=== PATIENT | male | born 1955 | race Hispanic/Latino ===

== ENCOUNTER 2020-02-20 20:34 | Emergency (ER) | payer MEDICARE, OTHER ==
[~2020-02-20] VITALS: Ht 175.3 cm; Wt 99.8 kg
[2020-02-20] MEDS ORDERED: LEVOTHYROXINE50 MCG PO (20:58)
[2020-02-20] MEDS ORDERED: PRAVACHOL20 MG PO (20:59)
[2020-02-20] MEDS ORDERED: GLUCOPHAGE1000 MG PO (20:59)
[2020-02-20] MEDS ORDERED: LISINOPRIL5 MG PO (20:59)
[2020-02-20] MEDS ORDERED: JANUVIA100 MG PO (21:00)
== END 2020-02-21 05:38 | disposition home or self-care (01) ==
LOC: ED 20:34
DX: D64.9 Anemia, unspecified (principal); E11.9 Type 2 diabetes mellitus without complications; I10 Essential (primary) hypertension; E78.5 Hyperlipidemia, unspecified; E03.9 Hypothyroidism, unspecified; Z87.891 Personal history of nicotine dependence; Z79.899 Other long term (current) drug therapy; Z79.84 Long term (current) use of oral hypoglycemic drugs
CPT/HCPCS: 36430; 80053; 83540; 84466; 85025; 85610; 85730; 86850; 86900; 86901; 86920; 99284-25

== ENCOUNTER 2020-10-16 10:22 | Observation (INO) | payer MEDICARE, MEDICAID ==
[~2020-10-16] VITALS: Ht 175.3 cm; Wt 114.3 kg
[~2020-10-16 10:22] MED LIST: GLUCOPHAGE1000 MG PO; JANUVIA100 MG PO; LEVOTHYROXINE50 MCG PO; LISINOPRIL5 MG PO; PRAVASTATIN SOD40 MG PO
[2020-10-16] MEDS ORDERED: PANTOPRAZOLE SO40 MG PO (10:35)
[2020-10-16] MEDS ORDERED: PROPRANOLOL HCL10 MG PO (13:39)
[2020-10-16] MEDS ORDERED: LISINOPRIL10 MG PO (13:40)
[2020-10-16] MEDS ORDERED: PRAVASTATIN SOD20 MG PO (14:27)
--- NOTE | 2020-10-16 16:00 | NUR ---
PT ARRIVED AT 1515. CONSENT SIGNED FOR BLOOD TRANSFUSION, PT HAS +1 PITTING EDEMA IN BILATERAL LOWER LEGS. ASSESSMENT OTHERWISE WAS WLD OVERALL.
--- NOTE | 2020-10-16 17:25 | NUR ---
BLOOD TRANSFUSION IS RUNNING BAG 1 OF 2. V/S WDL. PT HAS NO NEEDS OR COMPLAINTS AT THIS TIME.
--- NOTE | 2020-10-16 19:19 | NUR ---
IN ROOM FOR REPORT, PT IS AWAKE IN BED. PROVIDED ANOTHER BLANKET AND HE DENIES FURTHER NEEDS AT THIS TIME. CALL LIGHT IS CLOSE.
--- NOTE | 2020-10-16 21:32 | NUR ---
IN ROOM TO CHECK ON PT. HE DENIES ANY SYMPTOMS WITH BLOOD INFUSING. PT DENIES FURTHER NEEDS. CALL LIGHT IS CLOSE.
--- NOTE | 2020-10-16 22:14 | NUR ---
CALLED PT SON, ALFRED, HE WILL START IN FROM [place]. DR CHOUDHURY NOTIFIED THAT THE BLOOD INFUSION WAS COMPLETE, AND SHE WILL PLAN TO COME SEE HIM. INFORMED PT OF THIS.
--- NOTE | 2020-10-16 22:25 | NUR ---
2015-STARTED BLOOD TRANSFUSION @ 75MLS/HR. PT TOLERATED IT WELL AND HAD NO REACTIONS. 2029 INCREASED RATED TO 150MLS AND PT TOLERATED IT WELL WITHOUT REACTIONS. 2039 INCREASED RATE TO 200MLS/HR AND PT TOLERATED IT WELL WITHOUT ANY REACTION. BLOOD COMPLETE AT 2225, PT DENIES ANY SYMPTOMS OF REACTION. ALL VS WNL.
--- NOTE | 2020-10-16 23:45 | NUR ---
PT DENIES NEED FOR EVENING MEDICATIONS. PT STATES HE DOES NOT TAKE INSULIN AT HOME. PT WILL DC SOON AND DC ORDERS ARE IN.
--- NOTE | 2020-10-16 23:50 | NUR ---
pt DRESSED AT SIDE OF BED. IV D/C'D WNL. ICT BUSINESS ANALYST SHERIE IN ROOM TO COMPLETE VS, ESCORT PATIENT OUT OF HOSPITAL WITH WHEELCHAIR.
--- NOTE | 2020-10-17 00:06 | NUR ---
CYRUS REHMAN TOOK PT OUT TO SON CAR VIA WHEELCHAIR.
== END 2020-10-17 00:06 | disposition home or self-care (01) ==
LOC: ED 10:22 → MS 10:23
PROVIDERS: ADMIT Internal Medicine; ATTEND Internal Medicine
DX: D50.0 Iron deficiency anemia secondary to blood loss (chronic) (principal); K74.60 Unspecified cirrhosis of liver; D69.6 Thrombocytopenia, unspecified; I10 Essential (primary) hypertension; E78.5 Hyperlipidemia, unspecified; E03.9 Hypothyroidism, unspecified; E11.9 Type 2 diabetes mellitus without complications; Z20.822 Contact with and (suspected) exposure to COVID-19; Z87.891 Personal history of nicotine dependence; Z79.84 Long term (current) use of oral hypoglycemic drugs
CPT/HCPCS: 36415; 36430; 83540; 83615; 84466; 85025; 85045; 85610; 85730; 86850; 86900; 86901; 86920; 99284; C9803; G0378; J7030; P9016; U0003

== ENCOUNTER 2023-09-02 03:14 | Observation (INO) | payer MEDICARE ==
[~2023-09-02] VITALS: Ht 175.3 cm; Wt 97.8 kg
[2023-09-02] VITALS (14 sets, daily range): BP systolic 91–135; BP diastolic 47–93
[~2023-09-02 03:14] MED LIST changes: +LISINOPRIL10 MG PO; +PANTOPRAZOLE SO40 MG PO; +PRAVASTATIN SOD20 MG PO; +PROPRANOLOL HCL10 MG PO
[2023-09-02] MEDS ORDERED: PANTOPRAZOLE SODIUM 40 MG/10 ML VIAL IV ONE (03:30)
[2023-09-02 03:49] LABS: BASOPHILS 0.9 % (0-2); EOSINOPHILS 0.3 % (0-6); HEMOGLOBIN 10.3 g/dL (12.0-18.0); LYMPHOCYTES 9.6 % (24-44); MCH 29.2 (27-36); MCHC 32.4 g/dl (30-36); MCV 90.2 fl (81-99); MONOCYTES 3.7 % (0-12); NEUTROPHILS 85.5 % (39-80); PLATELET COUNT 104 K/uL (140-440); RBC 3.54 M/ul (4.3-5.7); RDW 18.1 (10.5-15.0)
[2023-09-02 03:58] LABS: INR 1.16 (0.80-1.30); PROTIME 14.4 Sec (11.2-14.2)
[2023-09-02 04:03] LABS: ALBUMIN 2.7 g/dL (3.4-5.0); ALBUMIN/GLOBULIN RATIO 0.61 (1.1-2.4); ANION GAP 19.1 (7-21); BILIRUBIN, TOTAL 1.7 ng/dL (0.2-1.0); CALCIUM 9.2 mg/dL (8.5-10.1); CREATININE, SERUM 1.15 mg/dL (0.70-1.30); POTASSIUM 4.1 mmol/L (3.5-5.1); PROTEIN, TOTAL 7.1 g/dL (6.4-8.2)
[2023-09-02 04:24] LABS: ABO A; ANTIBODY SCREEN NEGATIVE; RH POSITIVE
[2023-09-02 04:37] LABS: BASOPHILS 0.2 % (0-2); EOSINOPHILS 0.2 % (0-6); HEMATOCRIT 29.1 % (35.0-50.0); HEMOGLOBIN 9.4 g/dL (12.0-18.0); LYMPHOCYTES 10.9 % (24-44); MCH 29.1 (27-36); MCHC 32.2 g/dl (30-36); MCV 90.4 fl (81-99); MONOCYTES 4.3 % (0-12); NEUTROPHILS 84.4 % (39-80); PLATELET COUNT 86 K/uL (140-440); RBC 3.23 M/ul (4.3-5.7); RDW 18.1 (10.5-15.0)
[2023-09-02] MEDS ORDERED: TRANEXAMIC ACID IN NACL,ISO-OS 1,000 MG/100 ML PIGGYBACK IV ONE (04:45)
[2023-09-02] MEDS ORDERED: ondansetron HCL 4 MG/2 ML VIAL IV ONE (05:15)
[2023-09-02 05:48] LABS: BASOPHILS 0.5 % (0-2); EOSINOPHILS 0.1 % (0-6); HEMATOCRIT 28.3 % (35.0-50.0); HEMOGLOBIN 9.4 g/dL (12.0-18.0); LYMPHOCYTES 12.9 % (24-44); MCH 29.6 (27-36); MCHC 33.1 g/dl (30-36); MCV 89.4 fl (81-99); MONOCYTES 5.7 % (0-12); NEUTROPHILS 80.8 % (39-80); PLATELET COUNT 86 K/uL (140-440); RBC 3.16 M/ul (4.3-5.7); RDW 17.5 (10.5-15.0)
[2023-09-02] MEDS ORDERED: ondansetron HCL 4 MG/2 ML VIAL IV PRN (06:15)
[2023-09-02] MEDS ORDERED: MORPHINE SULFATE 4 MG/ML VIAL IV PRN (06:15)
[2023-09-02] MEDS ORDERED: DEXTROSE 5% IV SCH (06:15)
[2023-09-02] MEDS ORDERED: ACETAMINOPHEN 325 MG TAB PO PRN (06:15)
[2023-09-02] MEDS ORDERED: SODIUM CHLORIDE 0.9% 1,000 ML IV SCH (06:15)
[2023-09-02] MEDS ORDERED: PANTOPRAZOLE SODIUM IV SCH (06:15)
[2023-09-02] MEDS ORDERED: OCTREOTIDE ACETATE 100 MCG/ML VIAL IV ONE (06:15)
[2023-09-02] MEDS ORDERED: PANTOPRAZOLE SODIUM 40 MG/10 ML VIAL ONE (06:30)
[2023-09-02] MEDS ORDERED: IBLOOD GLUCOSE TEST STRIP 1 EA TEST XX PRN (07:30)
[2023-09-02] MEDS ORDERED: GLUCAGON,HUMAN RECOMBINANT 1 MG/ML VIAL SUB-Q PRN (07:30)
[2023-09-02] MEDS ORDERED: DEXTROSE 50% 50 ML SYR IV PRN ×2 (07:30)
[2023-09-02] MEDS ORDERED: DEXTROSE 5% 1,000 ML IV PRN (07:30)
[2023-09-02] MEDS ORDERED: IBLOOD GLUCOSE TEST STRIP 1 EA TEST VI SCH (08:00)
[2023-09-02] MEDS ORDERED: INSULIN LISPRO 100 UNIT/ML ML SUB-Q SCH (08:00)
--- NOTE | 2023-09-02 08:02 | NUR ---
UR NOTE 09/02/23 OBSERVATION 09/02/23 0658 EXPECTED LOS <2 MIDNIGHTS PRIMARY INSURANCE: MEDICARE
[2023-09-02 08:09] LABS: BASOPHILS 0.5 % (0-2); EOSINOPHILS 0.2 % (0-6); HEMATOCRIT 29.6 % (35.0-50.0); HEMOGLOBIN 9.6 g/dL (12.0-18.0); LYMPHOCYTES 16.8 % (24-44); MCH 29.1 (27-36); MCHC 32.5 g/dl (30-36); MCV 89.7 fl (81-99); MONOCYTES 5.3 % (0-12); NEUTROPHILS 77.2 % (39-80); PLATELET COUNT 82 K/uL (140-440); RBC 3.31 M/ul (4.3-5.7); RDW 18.2 (10.5-15.0)
--- NOTE | 2023-09-02 08:50 | NUR ---
PATIENT ARRIVED TO CCU ROOM 127. PATIENT TRANSFFERED BY CCU STAFF VIA STRETCHER. ON ARRIVAL PATIENT UP TO BATHROOM INDEPENDENTLY WITH NO ISSUES. PATIENT DENIES DIZZINESS. PATIENT HX AND ASSESSMENT COMPLETED. PATIENT AND FAMILY AT THE BEDSIDE. STUDENT RN EVELYN AND MARIUM ASSISTING WITH PATIENT CARES AND ADMISSION. PATIENT SPEAKS AND UNDERSTANDS IRISH WELL. PATIENTS DAUGHTER SPEAKS BOTH IRISH AND DIVEHI WELL. ALL QUESTIONS WERE ANSWERED. WILL USE TRANSLATION SERVICE IF NEEDED, BUT AT THIS TIME PATIENT DENIES NEED FOR SERVICE. PATIENT DENIES NAUSEA OR PAIN. WILL MONITOR PATIENT FOR ANY FURTHER BLEEDING.
[2023-09-02] MEDS ORDERED: LEVOTHYROXINE SODIUM 50 MCG TAB PO SCH (09:00)
[2023-09-02] MEDS ORDERED: metFORMIN HCL 500 MG TAB PO SCH (09:00)
[2023-09-02] MEDS ORDERED: PANTOPRAZOLE SODIUM 40 MG/10 ML VIAL IV SCH (09:00)
[2023-09-02] MEDS ORDERED: lisinopriL 10 MG TAB PO SCH (09:00)
--- NOTE | 2023-09-02 09:44 | NUR ---
PATIENTS FAMILY LEFT AT THIS TIME. PATIENT RESTING IN BED AND DENIES ANY NEEDS AT THIS TIME.
--- NOTE | 2023-09-02 10:00 | NUR ---
VERIFIED WITH MD LEMUS THAT HE WANTS PROTONIX GTT DCD. PATIENTS FAMILY LEFT AND STATED "WE WILL BE BACK LATER". PATIENT DENIES NAUSEA. ICE WATER PROVIDED. VERIFIED WITH MD TO ADVANCE PATIENT TOLERATED TO 60G CARB DIET AND MONITOR FOR CHANGES.
[2023-09-02 10:12] LABS: BASOPHILS 0.6 % (0-2); EOSINOPHILS 0.2 % (0-6); HEMATOCRIT 28.1 % (35.0-50.0); HEMOGLOBIN 9.3 g/dL (12.0-18.0); LYMPHOCYTES 16.9 % (24-44); MCH 29.3 (27-36); MCV 88.8 fl (81-99); MONOCYTES 7.4 % (0-12); NEUTROPHILS 74.9 % (39-80); PLATELET COUNT 85 K/uL (140-440); RBC 3.16 M/ul (4.3-5.7)
[2023-09-02] MEDS ORDERED: LISINOPRIL5 MG PO (10:33)
[2023-09-02] MEDS ORDERED: FARXIGA5 MG PO (10:35)
[2023-09-02] MEDS ORDERED: METFORMIN HCL500 MG PO (10:35)
[2023-09-02] MEDS ORDERED: IRON325 M1 PO (11:14)
--- NOTE | 2023-09-02 11:14 | NUR ---
MED REC COMPLETE
[2023-09-02] MEDS ORDERED: PHARMACY RENAL DOSE ADJUSTMENT 1 DOSE MISC PO SCH (12:00)
--- NOTE | 2023-09-02 12:45 | NUR ---
PATIENT TOLERATED PUDDING WELL AND GIVEN HIS LUNCH. PATIENT DENIES WANTING TO EAT TURKEY BUT WILL EAT THE POTATOES. NO OTHER NEEDS AT THIS TIME. STUDENT NURSE AT THE BEDSIDE VISITING WITH PATIENT.
--- NOTE | 2023-09-02 14:00 | NUR ---
PATIENT UP TO THE BATHROOM WITH RN AND STUDENT RN ASSIST. PATIENT INDEPENDENT AND ONLY REQUIRES CORD MANAGEMENT. PATIENT ALERT AND ORIENTED. PATIENT DENIES LIGHTHEADED/DIZZINESS. PATIENT TOLERATED FOOD WELL WITH NO ISSUES. MD WAS IN TO DO BEDSIDE RECTAL FOR GUAIAC WITH STUDENT RN. GUIAC WAS NOTED TO BE POSITIVE WITH BROWN STOOL PRESENT. NO OTHER NEEDS AT THIS TIME. CALL LIGHT IN REACH.
--- NOTE | 2023-09-02 15:46 | NUR ---
PATIENT RESTING IN BED ON HIS SIDE AT THIS TIME. PATIENT ON THE MONITOR IS NOTED TO HAVE APNEA EPISODES. RT UPDATED. PATIENT HAS CALL LIGHT WITHIN REACH.
[2023-09-02 18:06] LABS: BASOPHILS 0.6 % (0-2); EOSINOPHILS 0.5 % (0-6); HEMATOCRIT 25.8 % (35.0-50.0); HEMOGLOBIN 8.4 g/dL (12.0-18.0); LYMPHOCYTES 20.3 % (24-44); MCH 29.1 (27-36); MCHC 32.7 g/dl (30-36); MCV 89.2 fl (81-99); MONOCYTES 9.8 % (0-12); NEUTROPHILS 68.8 % (39-80); PLATELET COUNT 89 K/uL (140-440); RBC 2.89 M/ul (4.3-5.7); RDW 17.6 (10.5-15.0)
--- NOTE | 2023-09-02 18:13 | NUR ---
Entered room to check patient's blood sugar. When entering room patient was laying in bed watching TV, fully alert and orientated. No signs of pain were noted. Patient denied any feelings of pain or dizziness when asked. Patient aslo denied dinner because they stated they "don't each much especilly since they did not work today". Patient handled blood sugar check well and blood glucose was 109. Offered to take patient to restroom but they stated they did not have to go and did not have any other needs at this moment. Call light within reach and bed locked and low. Patient has fresh water at bedside.
[2023-09-02 19:22] LABS: IS CROSSMATCH COMPATIBLE
--- NOTE | 2023-09-02 19:49 | NUR ---
SBAR REPORT RECEIVED FROM CASS ALEXANDRA. PATIENT DREW IS NOTED TO BE ALERT AND ORIENTED, DENIES PAIN OR DISCOMFORTS. PATIENT IS PRIMARILY LIBERIAN SPEAKING AND THIS RN IS FLUENT IN LIBERIAN. THE ROOM DOES HAVE AN STRONG "GI" ODOR. PATIENT DENIES HAVING A BOWEL MOVEMENT NOR EMESIS. WILL CONTINUE TO MONITOR. PATIENT WAS EDUCATED ON HOW TO USE THE CALL LIGHT, CALLING RN'S FOR HELP OR NEEDS. SAFETY CHECK OF ROOM PERFORMED.
--- NOTE | 2023-09-02 21:50 | NUR ---
METFORMIN HELD DUE TO A POSSIBILITY OF A SCOPE. FAMILY AT BEDSIDE. PATIENT IS CONTENT AND COMFORTABLE. HE ENDORSED HUNGER AND WAS GIVEN BROTH, GREEN JELLO, AND H20
--- NOTE | 2023-09-02 23:55 | NUR ---
PATIENT DREW CALLED AND REPORTED RESTROOM NEEDS. INDEPENDENT TO RESTROOM WITH NO SIGNIFICANT CHANGES IN VITAL SIGNS. VERY SMALL SMEAR IN RESTROOM. NO REPORTS OF DISCOMFORT. PATIENT BACK IN BED, WARM BLANKET PROVIDED. SPOUSE AT BEDSIDE AND PLANS TO STAY OVERNIGHT WITH PATIENT. LIGHTS DIMMED FOR COMFORT.
[2023-09-03] VITALS (13 sets, daily range): BP systolic 62–124; BP diastolic 41–80
--- NOTE | 2023-09-03 01:51 | NUR ---
PATIENT RAMON IS RESTING COMFORTABLY WITH EYES CLOSED. VSS AND WDL PER MONITOR. NO NEEDS IDENTIFIED AT THIS TIME. SPOUSE REMAINS AT BEDSIDE. SAFETY CHECK OF ROOM PERFORMED. PERSONAL BELONGINGS AND ON BEDSIDE TABLE
--- NOTE | 2023-09-03 03:36 | NUR ---
PATIENT RAMON REPORTED RESTROOM NEEDS. HE VOIDED 225CC OF YELLOW URINE. WARM BLANKETS PROVIDED HE AND HIS SPOUSE. DENIES ANY DISCOMFORTS. HE IS NOW RESTING WITH EYES CLOSED. VSS AND WDL PER MONITOR
[2023-09-03 05:21] LABS: HEMOGLOBIN 7.7 g/dL (12.0-18.0)
[2023-09-03 05:23] LABS: BASOPHILS 0.9 % (0-2); EOSINOPHILS 2.5 % (0-6); HEMATOCRIT 23.1 % (35.0-50.0); LYMPHOCYTES 29.9 % (24-44); MCH 29.6 (27-36); MCHC 33.3 g/dl (30-36); MONOCYTES 10.6 % (0-12); NEUTROPHILS 56.1 % (39-80); PLATELET COUNT 72 K/uL (140-440)
[2023-09-03 05:31] LABS: ANION GAP 12.8 (7-21); BUN/CREATININE RATIO 35.44 (6.0-28.6); CALCIUM 7.8 mg/dL (8.5-10.1); CREATININE, SERUM 0.79 mg/dL (0.70-1.30); MAGNESIUM 1.9 mg/dL (1.8-2.4); POTASSIUM 3.8 mmol/L (3.5-5.1)
--- NOTE | 2023-09-03 06:55 | NUR ---
ROUNDED WITH MD CRUMP REGARDING A DROP IN H/H. NEW ORDERS RECEIVED. NPO AND CONSULT WITH MD REYNOSO FOR POSSIBLE EGD THIS AFTERNOON. NO EVIDENCE OF BLEED. PATIENT CONTINUES TO ENDORSE COMFORT, NO PAIN, NAUSEA VSS PER MONITOR. ALERT AND ORIENTED X 4, MOVES ALL EXTREMITIES, ENDORSES SLIGHT NUMBNESS IN RIGHT HAND STATES CHRONIC, PERRL, INDEPENDENT MOVEMENT AND AMBULATION NSR, SLIGHT HYPOTENSION, AFEBRILE RA, O2 88%- 95% NPO, NO EVIDENCE OF BLEEDING, NON TENDER, VOIDS IN URINAL
--- NOTE | 2023-09-03 08:50 | NUR ---
THIS RN AND 2 STUDENT RNS AT THE BEDSIDE TO PROVIDE CARES. PATIENT IS ALERT AND ORIENTED. MD CRUMP WAS IN THIS AM AND HAD CAMPUS AIDE RN CALL TO START TRANSFER ON PATIENT. UPDATED PATIENT THAT STAFF ARE WAITING FOR AN UPDATE IF MD REYNOSO WILL BE ABLE TO DO THE UPPER SCOPE OR HE MAY BE TRANSFERED FOR HIGHER LEVEL OF CARE. PATIENT IS AGREEABLE TO PLAN AND WILL KEEP THEM UPDATED. PATIENT SPEAKS AND UNDERSTANDS SPANSIH WELL, BUT ALSO SPEAKS WITH STUDENT RN FLUENTLY IN DUTCH. PATIENT CONTINUES TO DENY ANY PAIN IN ABD AREA. PATIENT STEADY ON HIS FEET AND DENIES DIZZINESS OR LIGHTHEADED FEELINGS. STUDENT RNS BROUGHT PATIENTS TO THE [facility] TO SHOW HERE HOW/WHERE TO ORDER BREAKFAST. CALL LIGHT IN REACH. BED IN LOWEST POSITION.
--- NOTE | 2023-09-03 09:40 | NUR ---
STAFF UPDATED THAT PATIENT WOULD BE GOING IN FOR PROCEDURE WITH MD REYNOSO. STAFF IN TO PREP PATIENT AT THIS TIME. STUDENT RN IN AT THE BEDSIDE AND ASSSITING WITH PREPING PATIENT. EKG ORDERED FOR PREOP. PATIENTS AT THE BEDSIDE. WILL GET LAB TECHNOLOGIST SERVICE AT THE BEDSIDE TO REVIEW PLAN OF CARE WITH PATIENT.
--- NOTE | 2023-09-03 10:16 | NUR ---
PATIENT LEFT WITH RN LAILA FOR PROCEDURE. [employer] INTERPRETATION SERVICE WAS UTILIZED TO EDUCATE PATIENT ON PLAN OF CARE. ALL QUESTIONS ANSWERED. PATIENT STOOD AND TRANSFERED TO BED. PATIENTS AND STUDENT RNS WENT WITH PATIENT TO WAIT IN DAY SURGERY WITH PATIENT UNTIL HE WAS READY TO GO FOR THE PROCEDURE. MD CRUMP IN TO UPDATE STAFF THAT IF PATIENT NEEDS TO TRANSFER WE HAVE AN ACCEPTING PHYSICIAN AND BED AVAILABLE IN [place]. WILL AWAIT PATIENTS RETURN AND FINDINGS.
[2023-09-03] MEDS ORDERED: LIDOCAINE HCL 2% 5 ML SDV ONE (10:20)
[2023-09-03] MEDS ORDERED: fentaNYL citrate 100 MCG/2 ML VIAL ONE (10:20)
[2023-09-03] MEDS ORDERED: propofoL 200 MG/20 ML VIAL ONE (10:20)
[2023-09-03] MEDS ORDERED: ePHEDrine sulfate 50 MG/ML AMP ONE (10:27)
--- NOTE | 2023-09-03 10:45 | NUR ---
PATIENT ARRIVED TO CCU ROOM 127 WITH CUSTOMER ACCOUNT SPECIALIST. PATIENT ALERT AND AWAKE ON RA. PATIENTS VITALS STABLE. PATIENT DENIES ANY PAIN OR NEEDS AT THIS TIME. PATIENT RESTING AT THIS TIME. VITALS EVERY 5 MINS.
--- NOTE | 2023-09-03 10:55 | NUR ---
PATIENT IS IN THE OR TO HAVING A SCOPE. THE LAND SURVEY TECHNICIAN WILL DISCUSS THE DISCHARGE PLAN WHEN I AM ABLE TO FOLLOW UP WITH PATIENT OR FAMILY.
--- NOTE | 2023-09-03 11:55 | NUR ---
THIS RN AND STUDENT RN EVELYN HAVE BEEN AT THE BEDSIDE [facility] PATIENT AND FAMILY USING THE TRANSLATION SERVICES WITH BOTH PROVIDERS TO UPDATE PATIENT ON PLAN OF CARE. MDS RECOMMEND TRANFER FOR HIGHER LEVEL OF CARE. VERIFIED WITH MD CRUMP TO DRAW LABS NOW FOR CBC TO CONFIRM STATUS PRIOR TO PATIENT DC. PATIENTS VITALS REMAIN STABLE. PATIENT DENIES DIZZINESS. PATIENTS AND DAUGHTER AT THE BEDSIDE. STAFF ARRANGING TRANSFER TO [facility] AT THIS TIME.
[2023-09-03 11:56] LABS: BASOPHILS 0.8 % (0-2); EOSINOPHILS 1.2 % (0-6); HEMATOCRIT 24.9 % (35.0-50.0); HEMOGLOBIN 8.3 g/dL (12.0-18.0); LYMPHOCYTES 32.6 % (24-44); MCH 29.7 (27-36); MCHC 33.2 g/dl (30-36); MCV 89.4 fl (81-99); MONOCYTES 8.4 % (0-12); PLATELET COUNT 78 K/uL (140-440); RBC 2.78 M/ul (4.3-5.7); RDW 17.7 (10.5-15.0)
[2023-09-03] MEDS ORDERED: CEFTRIAXONE/SODIUM CHLORIDE 1 GM/100 ML PIGGYBACK IV SCH (12:02)
--- NOTE | 2023-09-03 12:13 | NUR ---
UR NOTE 09/03/23 PT BEING TRANSFERED TO HIGHER LEVEL OF CARE PER DISCHARGE NOTE.
[2023-09-03] MEDS ORDERED: OCTREOTIDE ACETATE 100 MCG/ML VIAL IV ONE (13:30)
[2023-09-03] MEDS ORDERED: SODIUM CHLORIDE 0.9% IV SCH (13:30)
[2023-09-03] MEDS ORDERED: OCTREOTIDE ACETATE IV SCH (13:30)
--- NOTE | 2023-09-03 14:00 | NUR ---
PATIENT LEFT WITH [facility] STAFF. [facility] OCTREOTIDE STARTED AFTER BOLOS. PATIENT AND FAMILY UPDATED ON PLAN OF CARE AND ALL QUESTIONS ANSWERED. PATIENT DENIES ANY OTHER NEEDS AT THIS TIME. ONCE PATIENT TRANSFERED TO BED PATIENT REPORTED NAUSEA. ZOFRAN GIVEN BY [facility] STAFF. NO EMESIS NOTED UPON DISCHARGE. WILL CALL RN AT [place] FOR REPORT. VERIFIED ADRESS AND LOCATION WITH [facility] STAFF. ALL BELONGIGNS SENT WITH PATIENTS FAMILY.
--- NOTE | 2023-09-03 14:08 | NUR ---
REPORT CALLED AND GIVEN TO RUFINO ODELL AT [facility]. REVIEWED PLAN OF CARE WITH RN AND PATIENTS VITALS. ALL BELONGINGS SENT WITH PATIENTS FAMILY. NO OTHER QESTIONS AT THSI TIME.
--- NOTE | 2023-09-03 14:59 | EKG ---
[facility] [address] [facility] [place], [place] [address] Signed Normal sinus rhythm Nonspecific T wave abnormality Abnormal ECG No previous ECGs available Confirmed by HIPOLITO CRUMP MD ([id number]) on 09/03/2023 2:59:06 PM Electronically Signed By: HIPOLITO CRUMP 09/03/23 1459 PATIENT NAME: DREWRAMON JR Electrocardiogram DATE OF : 53 PHYSICIAN: HIPOLITO CRUMP REPORT #: [id number] REPORT IS CONFIDENTIAL AND NOT TO BE RELEASED WITHOUT AUTHORIZATION
--- NOTE | 2023-09-04 07:03 | OR ---
[facility] [address] [place], [place] [address] Signed DATE OF OPERATION: 09/03/2023 SURGEON: Rashmi Reynoso MD PREOPERATIVE DIAGNOSES: 1. Hematemesis. 2. Cirrhosis (question fatty liver). 3. History of esophageal varices banded x2 episodes. 4. Anemia. 5. Thrombocytopenia. 6. Possible history of bleeding ulcer or varices while in [place] per patient. POSTOPERATIVE DIAGNOSES: 1. Significant mid esophageal varices with recent bleed. 2. Significant gastropathy. 3. Duodenopathy with edema of the ampulla. PROCEDURE: EGD without biopsies. INDICATIONS: Ramon is a 68-year-old gentleman I met back in April of 2021. At some point in 2020, he had been in [place] and was told he was having a bleeding or oozing ulcer, but it could have been his varices. He was told to go back to the [place]. Dr. Sarah Sheldon did his upper and lower endoscopy in 2020 in October at [facility] in [place], [place]. She placed bands at that time. I met him at the very end of April 2021 at our critical access hospital. We have no string winding machine operator. He had varices at that time. It was clear that was the source of his bleeding at that time. He was sent down to [facility] specifically to [facility]. It sounds like he was banded again. Here in [facility], he had been sent over to the [facility] with [place] [facility] in [place], [place]. However, that group has been in transition, so it is hard to know the exact details. He is under the impression he was told he was fine and to go back home. He has had yet another episode of hematemesis and decided to drive over an hour to our critical access hospital rather than 1 hour to the [facility]. He was seen in the emergency room and he has been hemodynamically stable. His initial hemoglobin was 10.3 with platelets of 104. He had been admitted to our hospitalist service. He has drifted down his hemoglobin to 7.7 and his platelets to 72. We can see that his total bilirubin is 1.7, AST 74, ALT 44, alkaline phosphatase 214. His INR is 1.16. Albumin is 2.7, calcium at 7.8. Unfortunately, he has had no further hematemesis or hematochezia. I have been asked to Electronically Signed By: RASHMI REYNOSO MD 09/04/23 0703 PATIENT NAME: RAMON RUSSELL OPERATIVE REPORT DATE OF : 53 REPORT #: [id number] PHYSICIAN: RASHMI REYNOSO MD PCP: CATE SYKES PA-C REPORT IS CONFIDENTIAL AND NOT TO BE RELEASED WITHOUT AUTHORIZATION [address] [address] Signed scope him yet again as a local general surgeon. I had met with Ramon and his and went over the above findings. Ramon understands and speaks Tamazight moderately well. He actually did pretty good with conversation and with his details. He understands upper endoscopy quite well. There is risk including, but not limited to gas bloating, crampy abdominal pain, bleeding, perforation requiring surgery, and missed diagnosis. We also reviewed the need for monitored anesthesia care given his current situation. He had expressed understanding and wished to proceed. PROCEDURE IN DETAIL: Ramon was taken into our endoscopy suite and placed in the supine semi-recumbent position. He was given monitored anesthesia care per our nurse television writer. A bite block was utilized for the case. The adult gastroscope was introduced and advanced under direct visualization of the camera out into the duodenum. He had congestion of the duodenum, the ampulla of Vater and his entire stomach. I would say it was moderate, maybe even more than moderate. No active bleeding or fresh blood anywhere in the duodenum or pyloric channel. His entire stomach is congested, but no active ulceration or bleeding sites that I could find. No obvious hiatal hernia, though it might be very very tiny. The scope was withdrawn up through the area of the GE junction, which was compliant without stricture. I really could not see any gastric varices. He has very minimal disruption to the Z-line. He had some varices in the distal esophagus, but he has been banded there at least twice and they were quite small but the middle and proximal esophagus was much more impressive. He clearly had several areas of bleeding in his mid esophagus from the varices. Unfortunately, no active bleeding at this time. We did notice a very tiny nodule just above the vocal cords at about the level of arytenoids. I am sure it is benign, but at some point he might have that looked at by an ENT physician like Dr. Worley here in [place]. More pressing are his varices. After this, the gas was suctioned out and the gastroscope removed. Ramon tolerated the procedure quite well. RECOMMENDATIONS: Ramon is going to be returned to the ICU bed on the hospitalist service. I will talk with our hospitalist and we will see about getting him to someone who has a string winding machine operator for his current bleed. Rashmi Reynoso MD ALB/MODL /[id number] Electronically Signed By: RASHMI REYNOSO MD 09/04/23 0703 PATIENT NAME: RAMON RUSSELL JR OPERATIVE REPORT DATE OF : 53 REPORT #: [id number] PHYSICIAN: RASHMI REYNOSO MD PCP: CATE SYKES PA-C REPORT IS CONFIDENTIAL AND NOT TO BE RELEASED WITHOUT AUTHORIZATION [facility] [address], [place] [address] Signed cc: [facility] Rashmi Reynoso MD [facility], Gastroenterol Copies: RASHMI REYNOSO MD ~ Electronically Signed By: RASHMI REYNOSO MD 09/04/23 0703 PATIENT NAME: RAMON RUSSELL JR OPERATIVE REPORT DATE OF : 53 REPORT #: [id number] PHYSICIAN: RASHMI REYNOSO MD PCP: CATE SYKES PA-C REPORT IS CONFIDENTIAL AND NOT TO BE RELEASED WITHOUT AUTHORIZATION
--- NOTE | 2023-09-04 07:03 | CONS ---
[facility] [address] [place], [place] [address] Signed DATE OF CONSULTATION: 09/03/2023 CHIEF COMPLAINT: Hematemesis. HISTORY OF PRESENT ILLNESS: Ramon is a 68-year-old diabetic gentleman, who apparently has fatty liver that resulted in cirrhosis and esophageal varices. He has been through multiple upper endoscopies with banding at least twice that I know once in [place], [place], the other in [place], [place]. He was even in [place] back in 2020 and apparently did the same thing and was told he had a bleeding ulcer. We have never been able to find a bleeding ulcer for him. Once again, he had some hematemesis. He decided to come over to [facility] here in [place], [place]. Despite the fact we have explained to him multiple times that we are critical access hospital and we have no traffic signal technician for upper scope and we do not have an interventional radiologist. Our [facility] is actually about the same distance from his house. Nevertheless, he came in the emergency room and he is hemodynamically stable. His initial hemoglobin was 10.3 and his platelets were 104. His total bilirubin is 1.7, AST 74, ALT 44, alkaline phosphatase 214, albumin 2.7, and INR 1.16. He was admitted to our hospitalist service. He has drifted down to 7.7. He has had no further hematemesis or hematochezia. I have been asked to see me as a local general surgeon to once again repeat the upper endoscopy. PAST MEDICAL HISTORY: Diabetes, hypertension, cirrhosis with varices, hyperlipidemia, neck and back pain, hypothyroidism, possible peptic ulcer disease and fatty liver. PAST SURGICAL HISTORY: Includes the EGD with banding in May 2021 in [place], [place] at [facility] through the [facility]. He has had an upper endoscopy in [place] in 2020. Dr. Sheldon performed upper and lower endoscopy in 2020 at [facility] in [place], [place] and placed bands. I helped him at the very end of April 2021 for upper endoscopy for the varices. That is when he was sent down to [place] a few days later. He has had right shoulder surgery as well. SOCIAL HISTORY: He does not smoke or drink. At one point, he made one visit to the [facility] with the [facility] there in [place], [place]. Apparently, they told him everything was fine, he should go home. He also goes to the [facility] to see Arturo Sykes, he is a physician's assistant sales center manager. He prefers the [facility]. Heidi is his daughter at [phone]. He is Serbian but does speak and comprehend Wolof moderately well. FAMILY HISTORY: Electronically Signed By: RASHMI REYNOSO MD 09/04/23 0703 PATIENT NAME: RAMON RUSSELL JR CONSULTATION DATE OF : 53 REPORT #: [id number] PHYSICIAN: RASHMI REYNOSO MD PCP: ARTURO SYKES PA-C REPORT IS CONFIDENTIAL AND NOT TO BE RELEASED WITHOUT AUTHORIZATION [facility] [address] [place], [place] [address] Signed None. REVIEW OF SYSTEMS: He had 10 systems reviewed and he told me nothing was new since I have seen him back in 2020. ALLERGIES: None. MEDICATIONS: 1. Protonix. 2. Lisinopril. 3. Propranolol. 4. Farxiga. 5. Metformin. 6. Levothyroxine. 7. Pravastatin. PHYSICAL EXAMINATION: VITAL SIGNS: Blood pressure is 98/84, his heart rate is 71, his respiratory rate is 15, his temperature is 98.0. He is 91% on room air. He is 5 feet 9 inches tall. He is 97 kg. His body mass index is 31. GENERAL: Ramon is a 68-year-old gentleman lying supine in his hospital bed with his at the bedside. LUNGS: Clear to auscultation bilaterally. HEART: Regular rate and rhythm without murmurs. ABDOMEN: Moderately protuberant, but soft and nontender. LABORATORY DATA: His white blood cell count was 4.5, hemoglobin 7.7, platelet count down to 72, mean cell volume is 89. BUN 28, creatinine 0.79, calcium 7.8, magnesium 1.9. INR 1.16. Total bilirubin 1.7, AST 74, ALT 44, alkaline phosphatase 214, albumin is 2.7. RADIOGRAPHIC STUDIES: None. ASSESSMENT AND PLAN: Ramon is a 68-year-old gentleman, who presents with ongoing cirrhosis and hematemesis, likely from his varices. His hemoglobin has slowly drifted down, so I have been asked to see him as a local general surgeon to perform his upper endoscopy. He and his are very familiar with upper endoscopy. They are very aware that we have no traffic signal technician at our hospital. We talked about him going to the [facility] in the future as I did back in 2020. He said he worries about going to [place] because people go there and and never come back. He understands that is only because those people are often Electronically Signed By: RASHMI REYNOSO MD 09/04/23 0703 PATIENT NAME: RAMON RUSSELL JR CONSULTATION DATE OF : 53 REPORT #: [id number] PHYSICIAN: RASHMI REYNOSO MD PCP: ARTURO SYKES PA-C REPORT IS CONFIDENTIAL AND NOT TO BE RELEASED WITHOUT AUTHORIZATION [facility] [address] [place], [place] [address] Signed very sick and have to go to a specialty care. He understands there is risk to the procedure including but not limited to gas bloating, crampy abdominal pain, bleeding, perforation requiring surgery, and missed diagnosis. He also requires monitored anesthesia care given his current situation. He had expressed understanding and wished to proceed. Rashmi Reynoso MD [facility]/AARONL /[id number] cc: [facility] MD Dr. Arturo [facility] Copies: RASHMI REYNOSO MD ~ Electronically Signed By: RASHMI REYNOSO MD 09/04/23 0703 PATIENT NAME: DREWRAMON PATTERSON CONSULTATION DATE OF : 53 REPORT #: [id number] PHYSICIAN: RASHMI REYNOOS MD PCP: ARTURO SYKES PA-C REPORT IS CONFIDENTIAL AND NOT TO BE RELEASED WITHOUT AUTHORIZATION
== END 2023-09-03 13:37 | disposition short-term general hospital (02) ==
LOC: ED 03:14 → CCU 03:15 → MS 03:15 → CCU 09-03 13:37
PROVIDERS: Colon & Rectal Surgery; Family Medicine; ADMIT Internal Medicine; ATTEND Internal Medicine
PROC: 0DJ08ZZ Inspection of Upper Intestinal Tract, Via Natural or Artificial Opening Endoscopic (ICD-10-PCS; principal; 2023-09-03 09:45)
DX: I85.01 Esophageal varices with bleeding (principal); K31.9 Disease of stomach and duodenum, unspecified; D69.6 Thrombocytopenia, unspecified; D64.9 Anemia, unspecified; E11.9 Type 2 diabetes mellitus without complications; I10 Essential (primary) hypertension; E03.9 Hypothyroidism, unspecified; E78.5 Hyperlipidemia, unspecified; Z79.84 Long term (current) use of oral hypoglycemic drugs; Z79.890 Hormone replacement therapy; Z79.899 Other long term (current) drug therapy; Z87.891 Personal history of nicotine dependence
CPT/HCPCS: 00731; 36415; 80048; 80053; 83735; 85025; 85610; 86850; 86900; 86901; 86922; 93005; 93010; 96365; 96374; 96375; 96376; 99284-25; C9113; G0378; J0696; J2001; J2354-JA; J2405; J2704; J3010; J7050; J7060

== ENCOUNTER 2024-05-05 00:36 | Inpatient (IN) | payer MEDICARE ==
[~2024-05-05] VITALS: Ht 175.3 cm
[2024-05-05] VITALS (12 sets, daily range): BP systolic 103–159; BP diastolic 53–574
[~2024-05-05 00:36] MED LIST changes: +FARXIGA5 MG PO; +IRON325 M1 PO; +METFORMIN HCL500 MG PO
[2024-05-05] MEDS ORDERED: methylPREDNISolone SOD SUCC 125 MG/2 ML VIAL IV ONE (01:00)
[2024-05-05] MEDS ORDERED: ALBUTEROL/IPRATROPIUM 3 ML NEB INH ONE (01:00)
[2024-05-05] MEDS ORDERED: ALBUTEROL SULFATE 0.5% 2.5 MG/0.5 ML VIAL INH ONE (01:15)
[2024-05-05] MEDS ORDERED: FUROSEMIDE 100 MG/10 ML VIAL IV ONE (01:30)
[2024-05-05] MEDS ORDERED: CEFTRIAXONE/SODIUM CHLORIDE 2 GM/100 ML PIGGYBACK IV ONE (01:30)
[2024-05-05 02:16] LABS: PH, VENOUS 7.409 (7.31-7.41)
[2024-05-05 02:20] LABS: BASOPHILS 1.6 % (0-2); EOSINOPHILS 4.7 % (0-6); HEMATOCRIT 36.5 % (35.0-50.0); HEMOGLOBIN 12.3 g/dL (12.0-18.0); LYMPHOCYTES 13.3 % (24-44); MCH 33.5 (27-36); MCHC 33.6 g/dl (30-36); MCV 99.8 fl (81-99); MONOCYTES 9.6 % (0-12); NEUTROPHILS 70.8 % (39-80); PLATELET COUNT 82 K/uL (140-440); RBC 3.66 M/ul (4.3-5.7); RDW 17.9 (10.5-15.0)
[2024-05-05 02:43] LABS: ALBUMIN 1.9 g/dL (3.4-5.0); ALBUMIN/GLOBULIN RATIO 0.34 (1.1-2.4); ANION GAP 10.7 (7-21); BILIRUBIN, TOTAL 1.9 ng/dL (0.2-1.0); BUN/CREATININE RATIO 11.84 (6.0-28.6); CALCIUM 8.6 mg/dL (8.5-10.1); CREATININE, SERUM 0.76 mg/dL (0.70-1.30); POTASSIUM 3.7 mmol/L (3.5-5.1); PROTEIN, TOTAL 7.5 g/dL (6.4-8.2)
[2024-05-05] MEDS ORDERED: SPIRONOLACTONE 25 MG TAB PO ONE (02:45)
[2024-05-05] MEDS ORDERED: LACTULOSE 20 GM/30 ML CUP PO ONE (02:45)
[2024-05-05] MEDS ORDERED: FUROSEMIDE 40 MG TAB PO ONE (02:45)
[2024-05-05 02:53] LABS: LACTIC ACID, BLOOD 2.5 mmol/L (0.4-2.0)
[2024-05-05] MEDS ORDERED: ALDACTONE100 MG PO (02:55)
[2024-05-05] MEDS ORDERED: CONSTULOSE10 GM/15 M PO (02:55)
[2024-05-05] MEDS ORDERED: FUROSEMIDE40 MG PO (02:55)
[2024-05-05 02:56] LABS: INFLUENZA B NAA NEGATIVE (NEGATIVE); RESPIRATORY SYNCYTIAL VIR NAA NEGATIVE (NEGATIVE)
[2024-05-05] MEDS ORDERED: ondansetron HCL 4 MG/2 ML VIAL IV PRN ×2 (05:45→11:30)
[2024-05-05 05:56] LABS: BACTERIA, URINE NONE SEEN /hpf (negative); BILIRUBIN, URINE NEGATIVE (negative); BLOOD/HGB, URINE TRACE-I (Negative); CASTS, URINE HYALINE 1+ \\lpf; COLLECTION TYPE, URINE CLEAN CATCH; CRYSTALS, URINE NONE SEEN (0-1+); EPITHELIAL CELLS, URINE SQUAMOUS 1+ /lpf (0-1+); KETONE, URINE NEGATIVE (Negative); LEUK ESTERASE, URINE NEGATIVE (negative); NITRITE, URINE NEGATIVE (negative); RED BLOOD CELLS, URINE 0-1 /hpf (0-5); REFLEX CULTURE, URINE No (No); WHITE BLOOD CELLS, URINE 0-1 /HPF (0-5)
[2024-05-05] MEDS ORDERED: ALBUTEROL SULFATE 0.083% 3 ML VIAL INH PRN (07:00)
[2024-05-05] MEDS ORDERED: FUROSEMIDE 40 MG/4 ML VIAL IV SCH (09:00)
[2024-05-05 09:19] LABS: ANION GAP 12.2 (7-21); BUN/CREATININE RATIO 7.76 (6.0-28.6); CALCIUM 8.8 mg/dL (8.5-10.1); CREATININE, SERUM 1.03 mg/dL (0.70-1.30); POTASSIUM 3.2 mmol/L (3.5-5.1)
[2024-05-05] MEDS ORDERED: ALBUTEROL/IPRATROPIUM 3 ML NEB INH PRN (09:30)
[2024-05-05] MEDS ORDERED: POTASSIUM CHLORIDE 10 MEQ TABCR PO ONE ×3 (11:15→20:30)
[2024-05-05] MEDS ORDERED: ALBUMIN HUMAN 25% 100 ML BTL IV PRN (12:00)
[2024-05-05] MEDS ORDERED: PHARMACY RENAL DOSE ADJUSTMENT 1 DOSE MISC PO SCH (12:00)
[2024-05-05 12:07] LABS: ALBUMIN 2.1 g/dL (3.4-5.0)
[2024-05-05] MEDS ORDERED: CARVEDILOL3.125 MG PO (13:00)
[2024-05-05 14:23] LABS: RBC, BODY FLUID 192; WBC, BODY FLUID 94
[2024-05-05 14:24] LABS: MONONUCLEAR CELLS, BODY FLUID 65; PMNS, BODY FLUID 35
[2024-05-05 14:30] LABS: SOURCE, BODY FLUID Ascites
[2024-05-05] MEDS ORDERED: LACTULOSE 20 GM/30 ML CUP PO SCH (16:00)
[2024-05-05] MEDS ORDERED: DEXTROSE 5% 1,000 ML IV PRN (16:15)
[2024-05-05] MEDS ORDERED: DEXTROSE 50% 50 ML SYR IV PRN ×2 (16:15)
[2024-05-05] MEDS ORDERED: IBLOOD GLUCOSE TEST STRIP 1 EA TEST XX PRN (16:15)
[2024-05-05] MEDS ORDERED: GLUCAGON,HUMAN RECOMBINANT 1 MG/ML VIAL SUB-Q PRN (16:15)
[2024-05-05] MEDS ORDERED: INSULIN LISPRO 100 UNIT/ML ML SUB-Q SCH (17:00)
[2024-05-05] MEDS ORDERED: IBLOOD GLUCOSE TEST STRIP 1 EA TEST XX SCH (17:00)
[2024-05-05 18:13] LABS: ANION GAP 10.8 (7-21); BUN/CREATININE RATIO 11.82 (6.0-28.6); CREATININE, SERUM 0.93 mg/dL (0.70-1.30); POTASSIUM 3.8 mmol/L (3.5-5.1)
[2024-05-05] MEDS ORDERED: PANTOPRAZOLE SODIUM 40 MG TABEC PO SCH (21:00)
[2024-05-06] VITALS (18 sets, daily range): BP systolic 91–149; BP diastolic 47–85
[2024-05-06 05:12] LABS: BASOPHILS 0.2 % (0-2); EOSINOPHILS 0.1 % (0-6); HEMATOCRIT 31.8 % (35.0-50.0); HEMOGLOBIN 10.8 g/dL (12.0-18.0); LYMPHOCYTES 11.2 % (24-44); MCH 33.6 (27-36); MCHC 34.1 g/dl (30-36); MCV 98.5 fl (81-99); MONOCYTES 7.9 % (0-12); NEUTROPHILS 80.6 % (39-80); PLATELET COUNT 84 K/uL (140-440); RBC 3.22 M/ul (4.3-5.7); RDW 17.2 (10.5-15.0)
[2024-05-06 05:27] LABS: ALBUMIN 2.1 g/dL (3.4-5.0); ALBUMIN/GLOBULIN RATIO 0.51 (1.1-2.4); ANION GAP 10.2 (7-21); BILIRUBIN, TOTAL 1.9 ng/dL (0.2-1.0); BUN/CREATININE RATIO 13.23 (6.0-28.6); CALCIUM 8.5 mg/dL (8.5-10.1); CREATININE, SERUM 0.68 mg/dL (0.70-1.30); MAGNESIUM 1.8 mg/dL (1.8-2.4); POTASSIUM 4.2 mmol/L (3.5-5.1); PROTEIN, TOTAL 6.2 g/dL (6.4-8.2)
[2024-05-06] MEDS ORDERED: LEVOTHYROXINE SODIUM 50 MCG TAB PO SCH (06:00)
[2024-05-06] MEDS ORDERED: FUROSEMIDE 40 MG/4 ML VIAL IV SCH (09:00)
[2024-05-06] MEDS ORDERED: ALBUMIN HUMAN 25% 100 ML BTL IV ONE (09:30)
[2024-05-06] MEDS ORDERED: POTASSIUM CHLORIDE 10 MEQ TABCR PO ONE (13:00)
[2024-05-06] MEDS ORDERED: SIMETHICONE 80 MG CHEW PO PRN (14:15)
--- NOTE | 2024-05-06 18:12 | EKG ---
[facility] [address] [facility] [place] [address] Signed Normal sinus rhythm Left axis deviation Inferior infarct , age undetermined Cannot rule out Anterior infarct , age undetermined Abnormal ECG When compared with ECG of 03-SEP-2023 09:28, Significant changes have occurred Confirmed by Edwin Lewis MD ([id number]) on 05/06/2024 6:12:30 PM Electronically Signed By: EDWIN LEWIS MD 05/06/241811 PATIENT NAME: DREWRAMON JR Electrocardiogram DATE OF : 53 PHYSICIAN: EDWIN LEWIS MD REPORT #: [id number] REPORT IS CONFIDENTIAL AND NOT TO BE RELEASED WITHOUT AUTHORIZATION
[2024-05-06 18:21] LABS: ALBUMIN 2.6 g/dL (3.4-5.0); ALBUMIN/GLOBULIN RATIO 0.6 (1.1-2.4); ANION GAP 11.2 (7-21); BILIRUBIN, TOTAL 2.5 ng/dL (0.2-1.0); BUN/CREATININE RATIO 15.49 (6.0-28.6); CALCIUM 8.9 mg/dL (8.5-10.1); CREATININE, SERUM 0.71 mg/dL (0.70-1.30); MAGNESIUM 1.8 mg/dL (1.8-2.4); PHOSPHORUS, INORGANIC 3.2 mg/dL (2.5-4.9); POTASSIUM 4.2 mmol/L (3.5-5.1); PROTEIN, TOTAL 6.9 g/dL (6.4-8.2)
[2024-05-06] MEDS ORDERED: MAGNESIUM SULFATE 2 GM/50 ML BAG IV ONE (19:00)
[2024-05-06] MEDS ORDERED: IBLOOD GLUCOSE TEST STRIP 1 EA TEST XX SCH (20:00)
[2024-05-06] MEDS ORDERED: INSULIN LISPRO 100 UNIT/ML ML SUB-Q SCH (20:00)
[2024-05-06] MEDS ORDERED: PANTOPRAZOLE SODIUM 40 MG/10 ML VIAL IV SCH (21:00)
[2024-05-07] VITALS (16 sets, daily range): BP systolic 91–136; BP diastolic 44–86
[2024-05-07 05:08] LABS: BASOPHILS 0.1 % (0-2); EOSINOPHILS 0.3 % (0-6); HEMATOCRIT 34.8 % (35.0-50.0); HEMOGLOBIN 11.7 g/dL (12.0-18.0); LYMPHOCYTES 13.4 % (24-44); MCH 33.2 (27-36); MCHC 33.6 g/dl (30-36); MCV 98.8 fl (81-99); MONOCYTES 9.2 % (0-12); PLATELET COUNT 89 K/uL (140-440); RBC 3.53 M/ul (4.3-5.7); RDW 17.3 (10.5-15.0)
[2024-05-07 05:25] LABS: ALBUMIN 2.5 g/dL (3.4-5.0); ALBUMIN/GLOBULIN RATIO 0.6 (1.1-2.4); ANION GAP 9.1 (7-21); BILIRUBIN, TOTAL 2.8 ng/dL (0.2-1.0); BUN/CREATININE RATIO 18.84 (6.0-28.6); CALCIUM 8.7 mg/dL (8.5-10.1); CREATININE, SERUM 0.69 mg/dL (0.70-1.30); MAGNESIUM 2.1 mg/dL (1.8-2.4); POTASSIUM 4.1 mmol/L (3.5-5.1); PROTEIN, TOTAL 6.7 g/dL (6.4-8.2)
[2024-05-07] MEDS ORDERED: METOCLOPRAMIDE HCL 10 MG/2 ML SDV IV SCH (06:00)
[2024-05-07] MEDS ORDERED: DEXTROSE 50% 50 ML SYR IV ONE (18:45)
[2024-05-07 18:58] LABS: AMYLASE FLUID SOURCE Ascites (()); AMYLASE, BODY FLUID 7 U/L (()); GLUCOSE FLUID SOURCE Ascites (()); GLUCOSE,BODY FLUID 173 mg/dL (()); LACTATE DEHYDROGENASE TOTAL,BF 23 U/L (()); LDH FLUID SOURCE Ascites (())
[2024-05-07 21:36] LABS: TOTAL PROTEIN FLUID SOURCE Ascites fluid (()); TOTAL PROTEIN, BODY FLUID 0.5 g/dL (())
[2024-05-07 23:51] LABS: ALBUMIN,BODY FLUID <311 mg/dL (()); SR SOURCE ASCITES (())
[2024-05-08] VITALS (19 sets, daily range): BP systolic 90–136; BP diastolic 44–91
[2024-05-08 05:37] LABS: BASOPHILS 0.5 % (0-2); EOSINOPHILS 1.2 % (0-6); HEMATOCRIT 33.2 % (35.0-50.0); HEMOGLOBIN 11.3 g/dL (12.0-18.0); LYMPHOCYTES 22.5 % (24-44); MCH 33.5 (27-36); MCV 98.4 fl (81-99); MONOCYTES 10.3 % (0-12); NEUTROPHILS 65.5 % (39-80); PLATELET COUNT 72 K/uL (140-440); RBC 3.37 M/ul (4.3-5.7)
[2024-05-08 05:55] LABS: ALBUMIN 2.2 g/dL (3.4-5.0); ALBUMIN/GLOBULIN RATIO 0.54 (1.1-2.4); ANION GAP 8.9 (7-21); BILIRUBIN, TOTAL 3.2 ng/dL (0.2-1.0); BUN/CREATININE RATIO 22.07 (6.0-28.6); CALCIUM 8.7 mg/dL (8.5-10.1); CREATININE, SERUM 0.77 mg/dL (0.70-1.30); MAGNESIUM 1.9 mg/dL (1.8-2.4); POTASSIUM 3.9 mmol/L (3.5-5.1); PROTEIN, TOTAL 6.3 g/dL (6.4-8.2)
[2024-05-08] MEDS ORDERED: DEXTROSE 50% 50 ML SYR IV ONE (07:15)
[2024-05-08] MEDS ORDERED: METOCLOPRAMIDE HCL 10 MG/2 ML SDV IV ONE (07:15)
[2024-05-08] MEDS ORDERED: CEFTRIAXONE/SODIUM CHLORIDE 1 GM/100 ML PIGGYBACK IV SCH (09:48)
[2024-05-08] MEDS ORDERED: AZITHROMYCIN 500 MG in DEXTROSE 5% 250 ML IV SCH (09:49)
[2024-05-08] MEDS ORDERED: CEFTRIAXONE/SODIUM CHLORIDE 2 GM/100 ML PIGGYBACK IV SCH (09:50)
[2024-05-08] MEDS ORDERED: METOCLOPRAMIDE HCL 10 MG/2 ML SDV IV SCH (14:00)
[2024-05-08] MEDS ORDERED: IBLOOD GLUCOSE TEST STRIP 1 EA TEST XX SCH (16:00)
[2024-05-08] MEDS ORDERED: INSULIN LISPRO 100 UNIT/ML ML SUB-Q SCH (16:00)
[2024-05-08] MEDS ORDERED: TAMSULOSIN HCL 0.4 MG CAP PO SCH (16:18)
[2024-05-08] MEDS ORDERED: LIDOCAINE 2% VISCOUS 6 ML SYR TOP ONE (16:30)
[2024-05-09] VITALS (19 sets, daily range): BP systolic 92–122; BP diastolic 35–60
[2024-05-09 05:29] LABS: BASOPHILS 1.5 % (0-2); EOSINOPHILS 5.8 % (0-6); HEMATOCRIT 29.8 % (35.0-50.0); HEMOGLOBIN 10.1 g/dL (12.0-18.0); MCH 33.4 (27-36); MCV 98.3 fl (81-99); MONOCYTES 14.4 % (0-12); NEUTROPHILS 61.3 % (39-80); PLATELET COUNT 58 K/uL (140-440); RBC 3.03 M/ul (4.3-5.7); RDW 16.8 (10.5-15.0)
[2024-05-09 05:51] LABS: ALBUMIN 1.9 g/dL (3.4-5.0); ALBUMIN/GLOBULIN RATIO 0.5 (1.1-2.4); ANION GAP 7.7 (7-21); BILIRUBIN, TOTAL 2.9 ng/dL (0.2-1.0); BUN/CREATININE RATIO 21.53 (6.0-28.6); CALCIUM 8.2 mg/dL (8.5-10.1); CREATININE, SERUM 0.65 mg/dL (0.70-1.30); MAGNESIUM 1.7 mg/dL (1.8-2.4); POTASSIUM 3.7 mmol/L (3.5-5.1); PROTEIN, TOTAL 5.7 g/dL (6.4-8.2)
[2024-05-09] MEDS ORDERED: IBLOOD GLUCOSE TEST STRIP 1 EA TEST XX SCH (08:00)
[2024-05-09] MEDS ORDERED: MAGNESIUM SULFATE 1 GM/2 ML VIAL IV ONE (08:00)
[2024-05-09] MEDS ORDERED: INSULIN LISPRO 100 UNIT/ML ML SUB-Q SCH (08:00)
[2024-05-09] MEDS ORDERED: Rifaximin 200 MG TAB PO SCH (09:00)
[2024-05-09] MEDS ORDERED: FUROSEMIDE 40 MG TAB PO SCH (09:00)
[2024-05-09] MEDS ORDERED: LACTULOSE 20 GM/30 ML CUP PO SCH (09:00)
[2024-05-09] MEDS ORDERED: SPIRONOLACTONE 25 MG TAB PO SCH (09:00)
[2024-05-09] MEDS ORDERED: MAGNESIUM SULFATE 2 GM/50 ML BAG IV SCH ×2 (10:00)
[2024-05-10] VITALS (14 sets, daily range): BP systolic 92–129; BP diastolic 44–57
[2024-05-10 05:36] LABS: BASOPHILS 1.5 % (0-2); EOSINOPHILS 8.9 % (0-6); HEMATOCRIT 30.2 % (35.0-50.0); HEMOGLOBIN 10.2 g/dL (12.0-18.0); LYMPHOCYTES 17.6 % (24-44); MCH 33.3 (27-36); MCHC 33.9 g/dl (30-36); MCV 98.1 fl (81-99); MONOCYTES 15.2 % (0-12); NEUTROPHILS 56.8 % (39-80); PLATELET COUNT 58 K/uL (140-440); RBC 3.08 M/ul (4.3-5.7); RDW 16.6 (10.5-15.0)
[2024-05-10 05:53] LABS: ALBUMIN 1.9 g/dL (3.4-5.0); ALBUMIN/GLOBULIN RATIO 0.5 (1.1-2.4); ANION GAP 8.4 (7-21); BILIRUBIN, TOTAL 2.5 ng/dL (0.2-1.0); BUN/CREATININE RATIO 19.35 (6.0-28.6); CALCIUM 8.1 mg/dL (8.5-10.1); CREATININE, SERUM 0.62 mg/dL (0.70-1.30); POTASSIUM 3.4 mmol/L (3.5-5.1); PROTEIN, TOTAL 5.7 g/dL (6.4-8.2)
[2024-05-10] MEDS ORDERED: ALBUMIN HUMAN 25% 100 ML BTL IV ONE (08:15)
[2024-05-10] MEDS ORDERED: POTASSIUM BICARBONATE/CIT AC 20 MEQ TABEF PO ONE (08:15)
[2024-05-10] MEDS ORDERED: LIDOCAINE 2% VISCOUS 6 ML SYR TOP ONE (17:15)
[2024-05-11 04:34] VITALS: BP 110/51
[2024-05-11] MEDS ORDERED: PANTOPRAZOLE SODIUM 40 MG TABEC PO SCH (09:00)
[2024-05-11 09:05] LABS: ANION GAP 9.8 (7-21); BUN/CREATININE RATIO 16.9 (6.0-28.6); CALCIUM 8.6 mg/dL (8.5-10.1); CREATININE, SERUM 0.71 mg/dL (0.70-1.30); POTASSIUM 3.8 mmol/L (3.5-5.1)
[2024-05-11 09:50] VITALS: BP 120/50
[2024-05-11 09:51] VITALS: BP 120/50
[2024-05-11] MEDS ORDERED: FUROSEMIDE 40 MG/4 ML VIAL IV ONE (13:30)
[2024-05-11] MEDS ORDERED: METOCLOPRAMIDE HCL 10 MG TAB PO SCH (14:00)
[2024-05-11 14:53] VITALS: BP 124/52
[2024-05-11 18:21] VITALS: BP 107/52
[2024-05-11 21:08] VITALS: BP 114/46
[2024-05-12] VITALS (9 sets, daily range): BP systolic 97–117; BP diastolic 45–84
[2024-05-13 05:35] VITALS: BP 92/50
[2024-05-13 05:55] VITALS: BP 108/50
[2024-05-13 09:52] VITALS: BP 108/53
[2024-05-13] MEDS ORDERED: XIFAXAN200 MG PO (10:03)
[2024-05-13] MEDS ORDERED: ALDACTONE100 MG PO (10:06)
[2024-05-13 10:31] VITALS: BP 108/53
[2024-05-13 14:01] VITALS: BP 120/50
[2024-05-13 14:05] VITALS: BP 120/50
== END 2024-05-13 14:19 | disposition home or self-care (01) | DRG 189 ==
LOC: ED 00:36 → CCU 00:38 → MS 05-10 11:35
PROVIDERS: Internal Medicine; ADMIT Student in an Organized Health Care Education/Training Program; ATTEND Student in an Organized Health Care Education/Training Program
PROC: 0W9G3ZZ Drainage of Peritoneal Cavity, Percutaneous Approach (ICD-10-PCS; principal; 2024-05-05)
DX: J96.01 Acute respiratory failure with hypoxia (principal); R18.8 Other ascites; I85.10 Secondary esophageal varices without bleeding; E87.20 Acidosis, unspecified; J98.11 Atelectasis; K76.6 Portal hypertension; K56.7 Ileus, unspecified; J90 Pleural effusion, not elsewhere classified; K75.81 Nonalcoholic steatohepatitis (NASH); K74.60 Unspecified cirrhosis of liver; E87.6 Hypokalemia; Z66 Do not resuscitate; E11.9 Type 2 diabetes mellitus without complications; I10 Essential (primary) hypertension; E03.9 Hypothyroidism, unspecified; D69.6 Thrombocytopenia, unspecified; Z79.890 Hormone replacement therapy; E78.5 Hyperlipidemia, unspecified; M54.9 Dorsalgia, unspecified; Z87.891 Personal history of nicotine dependence; Z79.84 Long term (current) use of oral hypoglycemic drugs; K80.20 Calculus of gallbladder without cholecystitis without obstruction
CPT/HCPCS: 36415; 49083; 51701; 51702; 51798; 71045; 71046; 71250; 71260; 74018; 74177; 76705; 80048; 80053; 81001; 82040; 82140; 82150; 82803; 82945; 83605; 83615; 83735; 83880; 84100; 84157; 84484; 85025; 85379; 87040; 87502; 88112; 89051; 93005; 93010; 94640; 94644; 94660; 94667; 94668; 94760; 94761; 94762; 96375; 97110; 97116; 97162; 97166; 97530; 97535; 99285-25; A9270; G0378; J0456; J0696; J1815; J1940; J2470; J2765; J2919; J3475; J7060; P9047; Q9967; U0002

== ENCOUNTER 2024-06-10 15:35 | Emergency (ER) | payer MEDICARE ==
[~2024-06-10] VITALS: Ht 175.3 cm; Wt 74.4 kg
[~2024-06-10 15:35] MED LIST changes: +ALDACTONE100 MG PO; +CARVEDILOL3.125 MG PO; +CONSTULOSE10 GM/15 M PO; +FUROSEMIDE40 MG PO; +XIFAXAN200 MG PO
[2024-06-10 16:22] LABS: EOSINOPHILS 0.8 % (0-6); HEMATOCRIT 39.2 % (35.0-50.0); HEMOGLOBIN 13.5 g/dL (12.0-18.0); LYMPHOCYTES 18.4 % (24-44); MCH 33.7 (27-36); MCHC 34.5 g/dl (30-36); MCV 97.8 fl (81-99); MONOCYTES 11.6 % (0-12); NEUTROPHILS 68.2 % (39-80); PLATELET COUNT 65 K/uL (140-440); RBC 4.01 M/ul (4.3-5.7); RDW 16.9 (10.5-15.0)
[2024-06-10 16:38] LABS: ALBUMIN 2.4 g/dL (3.4-5.0); ALBUMIN/GLOBULIN RATIO 0.44 (1.1-2.4); ANION GAP 10.3 (7-21); BILIRUBIN, TOTAL 2.6 ng/dL (0.2-1.0); BUN/CREATININE RATIO 14.38 (6.0-28.6); CALCIUM 9.6 mg/dL (8.5-10.1); CREATININE, SERUM 1.39 mg/dL (0.70-1.30); MAGNESIUM 2.2 mg/dL (1.8-2.4); POTASSIUM 4.3 mmol/L (3.5-5.1); PROTEIN, TOTAL 7.9 g/dL (6.4-8.2)
[2024-06-10] MEDS ORDERED: SODIUM CHLORIDE 0.9% 1,000 ML IV ONE ×2 (17:00→18:15)
[2024-06-10] MEDS ORDERED: LACTULOSE 20 GM/30 ML CUP PO ONE (17:00)
[2024-06-10 17:27] LABS: BILIRUBIN, URINE NEGATIVE (negative); BLOOD/HGB, URINE TRACE-I (Negative); KETONE, URINE NEGATIVE (Negative); LEUK ESTERASE, URINE NEGATIVE (negative); NITRITE, URINE NEGATIVE (negative)
[2024-06-10 17:51] LABS: EPITHELIAL CELLS, URINE SQUAMOUS 1+ /lpf (0-1+)
[2024-06-10 17:52] LABS: CRYSTALS, URINE NONE SEEN (0-1+); WHITE BLOOD CELLS, URINE 0-1 /HPF (0-5)
[2024-06-10 17:53] LABS: BACTERIA, URINE NONE SEEN /hpf (negative); CASTS, URINE NONE SEEN \\lpf; COLLECTION TYPE, URINE CLEAN CATCH; REFLEX CULTURE, URINE No (No)
[2024-06-10] MEDS ORDERED: ONDANSETRON ODT8 MG PO (19:59)
[2024-06-10 20:23] VITALS: BP 115/55
== END 2024-06-10 20:23 | disposition home or self-care (01) ==
LOC: ED 15:35
PROVIDERS: Emergency Medicine
DX: E86.0 Dehydration (principal); E11.9 Type 2 diabetes mellitus without complications; I10 Essential (primary) hypertension; E78.5 Hyperlipidemia, unspecified; E03.9 Hypothyroidism, unspecified; I85.00 Esophageal varices without bleeding; K74.60 Unspecified cirrhosis of liver; Z87.891 Personal history of nicotine dependence; Z79.84 Long term (current) use of oral hypoglycemic drugs; Z79.890 Hormone replacement therapy; Z79.899 Other long term (current) drug therapy
CPT/HCPCS: 36415; 71045; 80053; 81001; 82140; 83735; 84484; 85025; 96360; 96361; 99284-25; J7030

== ENCOUNTER 2024-08-22 22:52 | Emergency (ER) | payer MEDICARE ==
[~2024-08-22] VITALS: Ht 175.3 cm; Wt 71.2 kg
[~2024-08-22 22:52] MED LIST changes: +ONDANSETRON ODT8 MG PO
[2024-08-22 23:09] LABS: BASOPHILS 0.2 % (0-2); EOSINOPHILS 0.9 % (0-6); HEMATOCRIT 41.5 % (35.0-50.0); HEMOGLOBIN 14.5 g/dL (12.0-18.0); LYMPHOCYTES 9.6 % (24-44); MCH 35.5 (27-36); MCV 101.2 fl (81-99); MONOCYTES 7.6 % (0-12); NEUTROPHILS 81.7 % (39-80); PLATELET COUNT 69 K/uL (140-440); RBC 4.09 M/ul (4.3-5.7)
[2024-08-22] MEDS ORDERED: ondansetron HCL 4 MG/2 ML VIAL ONE (23:12)
[2024-08-22] MEDS ORDERED: ondansetron HCL 4 MG/2 ML VIAL IV ONE (23:15)
[2024-08-22 23:18] LABS: INR 1.32 (0.80-1.30); PROTIME 15.6 Sec (11.2-14.2)
[2024-08-22 23:26] LABS: ALBUMIN 2.1 g/dL (3.4-5.0); ALBUMIN/GLOBULIN RATIO 0.39 (1.1-2.4); ANION GAP 10.5 (7-21); BUN/CREATININE RATIO 10.11 (6.0-28.6); CALCIUM 9.2 mg/dL (8.5-10.1); CREATININE, SERUM 1.78 mg/dL (0.70-1.30); MAGNESIUM 1.9 mg/dL (1.8-2.4); POTASSIUM 2.5 mmol/L (3.5-5.1); PROTEIN, TOTAL 7.5 g/dL (6.4-8.2)
[2024-08-22] MEDS ORDERED: FAMOTIDINE 20 MG/ 2 ML VIAL IV ONE (23:45)
[2024-08-22] MEDS ORDERED: LACTATED RINGER'S 1,000 ML IV ONE (23:45)
[2024-08-22] MEDS ORDERED: LACTULOSE 20 GM/30 ML CUP PO ONE (23:45)
[2024-08-22] MEDS ORDERED: POTASSIUM CHLORIDE 10 MEQ/100 ML BAG IV SCH (23:45)
[2024-08-23 00:57] LABS: CORONAVIRUS COVID-19 AG NEGATIVE (NEGATIVE); INFLUENZA A AG NEGATIVE (NEGATIVE); INFLUENZA B AG NEGATIVE (NEGATIVE)
[2024-08-23] MEDS ORDERED: DEXAMETHASONE SOD PHOS 10 MG/ML VIAL IV ONE (01:30)
[2024-08-23] MEDS ORDERED: LACTATED RINGER'S 1,000 ML IV SCH (02:15)
[2024-08-23] MEDS ORDERED: LIDOCAINE 2% VISCOUS 6 ML SYR TOP ONE (02:15)
[2024-08-23 02:32] LABS: BILIRUBIN, URINE POSITIVE (negative); BLOOD/HGB, URINE MODERATE (Negative); KETONE, URINE NEGATIVE (Negative); LEUK ESTERASE, URINE NEGATIVE (negative); NITRITE, URINE NEGATIVE (negative)
[2024-08-23 02:41] LABS: WHITE BLOOD CELLS, URINE 0-1 /HPF (0-5)
[2024-08-23 02:42] LABS: BACTERIA, URINE RARE /hpf (negative); CASTS, URINE NONE SEEN \\lpf; COLLECTION TYPE, URINE CLEAN CATCH; CRYSTALS, URINE NONE SEEN (0-1+); EPITHELIAL CELLS, URINE SQUAMOUS 2+ /lpf (0-1+); REFLEX CULTURE, URINE No (No)
[2024-08-23] MEDS ORDERED: DEXAMETHASONE SOD PHOS 4 MG/ML VIAL IV SCH (08:00)
[2024-08-23 12:25] VITALS: BP 108/62
--- NOTE | 2024-08-23 12:44 | EKG ---
[facility] [address] [facility] [place] [address] Signed Normal sinus rhythm Left axis deviation Cannot rule out Anterior infarct (cited on or before 05-MAY-2024) Prolonged QT Abnormal ECG When compared with ECG of 05-MAY-2024 01:37, Inverted T waves have replaced nonspecific T wave abnormality in Anterior leads Confirmed by Erin Ahuja MD () on 08/23/2024 12:43:54 PM Electronically Signed By: ERIN AHUJA MD 08/23/24 1244 PATIENT NAME: MELANIE RUSSELLANKITA PATTERSON Electrocardiogram DATE OF : 53 PHYSICIAN: ERIN AHUJA MD REPORT #: [id number] REPORT IS CONFIDENTIAL AND NOT TO BE RELEASED WITHOUT AUTHORIZATION
== END 2024-08-23 12:25 | disposition home or self-care (01) ==
LOC: ED 22:52
PROVIDERS: Internal Medicine
DX: G93.89 Other specified disorders of brain (principal); E86.0 Dehydration; K76.82 Hepatic encephalopathy; E11.9 Type 2 diabetes mellitus without complications; I10 Essential (primary) hypertension; E78.5 Hyperlipidemia, unspecified; E03.9 Hypothyroidism, unspecified; Z87.891 Personal history of nicotine dependence; Z79.899 Other long term (current) drug therapy; Z79.84 Long term (current) use of oral hypoglycemic drugs
CPT/HCPCS: 36415; 51702; 51798; 70450; 70553; 71045; 74177; 80053; 81001; 82140; 83735; 83880; 84484; 85025; 85610; 93005; 93010; 99285-25; A9579; G0480; J1100; J2405; J3480; J7121; Q9967